=== PATIENT | female | born 1955 | race Hispanic/Latino ===

== ENCOUNTER → 2019-12-26 | Outpatient (CLI) | payer OTHER | END | disposition home or self-care (01) | LOC: OIH 10:45 | PROVIDERS: ATTEND Family Medicine | DX: M17.0 Bilateral primary osteoarthritis of knee (principal) | CPT/HCPCS: 73562 ==

== ENCOUNTER → 2020-02-08 | Outpatient (CLI) | payer OTHER | END | disposition home or self-care (01) | LOC: OIH 13:22 | PROVIDERS: ATTEND Family Medicine | DX: J34.89 Other specified disorders of nose and nasal sinuses (principal) | CPT/HCPCS: 70220 ==

== ENCOUNTER → 2020-10-23 | Outpatient (CLI) | payer OTHER, MEDICARE | END | disposition home or self-care (01) | LOC: RAH 10:47 | PROVIDERS: ATTEND Family Medicine | DX: I10 Essential (primary) hypertension (principal); R07.81 Pleurodynia; M47.815 Spondylosis without myelopathy or radiculopathy, thoracolumbar region | CPT/HCPCS: 71046; 71110 ==

== ENCOUNTER 2024-09-19 11:19 | Emergency (ER) | payer OTHER, MEDICAID ==
[~2024-09-19] VITALS: Ht 162.6 cm; Wt 79.4 kg
--- NOTE | 2024-09-19 11:25 | ERN ---
ED Note History of Present Illness Stated Complaint: DIZZINESS, WEAKNESS Time Seen by MD: 11:19 Dictation: PATIENT IS A 68-YEAR-OLD FEMALE COMING TO THE EMERGENCY ROOM VIA EMS WITH COMPLAINTS GENERALIZED BODY WEAKNESS AND MILD DIZZINESS ONSET WAS 2 HOURS PRIOR TO ARRIVAL. SHE STATES THE ONSET WAS FAIRLY SUDDEN HOWEVER SHE HAS HAD NO FEVER NO CHILLS NO NAUSEA VOMITING NO CHEST PAIN. SHE DENIES ANY HEADACHE. DENIES HISTORY OF VERTIGO LABYRINTHITIS AND CURRENTLY YOUR NIH IS 0. Allergies: Coded Allergies: No Known Allergies (Unverified Allergy, Unknown, 09/19/24) Past Medical History History: Not Applicable RN Note Reviewed/Agreed w/PFSH: Yes Review of System Dictation CONSTITUTIONAL: NEGATIVE EXCEPT FOR HPI GENERALIZED BODY WEAK HEAD/FACE: NEGATIVE EXCEPT FOR HPI EENT: NEGATIVE EXCEPT FOR HPI RESPIRATORY: NEGATIVE EXCEPT FOR HPI GASTROINTESTINAL/ABDOMINAL: NEGATIVE EXCEPT FOR HPI GENITOURINARY: NEGATIVE EXCEPT FOR HPI MUSCULOSKELETAL: NEGATIVE EXCEPT FOR HPI INTEGUMENTARY: NEGATIVE EXCEPT FOR HPI NEUROLOGICAL/PSYCH: NEGATIVE EXCEPT FOR HPI DIZZINESS HEMATOLOGIC/LYMPHATIC: NEGATIVE EXCEPT FOR HPI ALL SYSTEMS NEGATIVE, EXCEPT NOTED ABOVE. 13 POINT REVIEW OF SYSTEMS ASSESSED AND ALL NEGATIVE EXCEPT FOR ABOVE. Initial Vital Sign VS Vital Signs Date Time Temp Pulse Resp B/P (MAP) Pulse Ox O2 Delivery O2 Flow Rate FiO2 09/19/24 11:20 97.9 130 20 129/78 95 Nasal Cannula 2.0 09/19/24 12:08 21 Physical Exam Dictation VITAL SIGNS REVIEWED GENERAL APPEARANCE: ALERT, ORIENTED X 3, NO ACUTE DISTRESS, WELL DEVELOPED, NOURISHED. HEAD AND FACE: NON-TRAUMATIC. EYES: PERRL, PINK CONJUNCTIVAS, EYELID NO TRAUMA, ANTERIOR CHAMBER WITH ARCUS SENILIS. EARS: PINNAS INTACT AND NO SIGNS OF TRAUMA OR ERYTHEMA EAR CANALS CLEAR AND NO DISCHARGE TM NO ERYTHEMA NOSE: NO DISCHARGE, NO BLEEDING. OROPHARYNX: MOUTH NORMAL, TONGUE PINK, PHARYNX CLEAR,NO ERYTHEMA, TONSILS NO EXUDATES, NO ABSCESSES NOTED, MUCOUS MEMBRANE MOIST NECK: SUPPLE, NON-TENDER, NO THYROMEGALY, NO MASSES, NO JVD, NO BRUITS BREAST:DEFERRED CHEST:NO TENDERNESS, NO CREPITUS, NO PARADOXICAL MOVEMENT, NO RETRACTIONS LUNGS:CLEAR, WELL-VENTILATED, SYMMETRIC, NO RALES, NO WHEEZING, NO RHONCHI, NO STRIDOR, GOOD BREATH SOUNDS BILATERALLY HEART: REGULAR RATE, REGULAR RHYTHM, NO MURMUR, NO GALLOPS VASCULAR: NO PERIPHERAL EDEMA, ABDOMEN: SOFT, POSITIVE BOWEL SOUNDS, NONDISTENDED, NO GUARDING, NONTENDER, NO REBOUND, NO MASSES NO HEPATOMEGALY, NO SPLENOMEGALY, NO PEARSON'S SIGN, NO HERNIAS. RECTAL: DEFERRED GENITAL: DEFERRED NEUROLOGICAL: NORMAL SPEECH, MOTOR FUNCTION INTACT, SENSORY FUNCTION INTACT NIH IS 0 MUSCULOSKELETAL: NECK NONTENDER, FULL RANGE OF MOTION, BACK NONTENDER, FULL RANGE OF MOTION, EXTREMITIES: NONTENDER, FULL RANGE OF MOTION SKIN: COLOR PINK, DRY, NO TURGOR, NO RASH, NO LACERATIONS, NO ABRASIONS, NO CONTUSIONS. LYMPHATIC: DEFERRED Results (Laboratory/Radiology) Laboratory/Radiology Laboratory Tests Test 09/19/24 11:30 09/19/24 12:36 White Blood Count 6.4 K/uL (4.8-10.8) Red Blood Count 4.61 MIL/uL (4.00-5.50) Hemoglobin 12.3 g/dL (12.0-16.0) Hematocrit 36.8 % (36-48) Mean Corpuscular Volume 79.8 fL (79-99) Mean Corpuscular Hemoglobin 26.7 pg (27.0-33.0) L Mean Corpuscular Hemoglobin Concent 33.4 g/dL (32.0-36.0) Red Cell Distribution Width 14.6 % (11.0-15.5) Platelet Count 176 K/uL (130-400) Mean Platelet Volume 13.8 fL (7.5-10.5) H Immature Granulocyte % (Auto) 0.3 % (0-1) Neutrophils (%) (Auto) 57.0 % (40.0-77.0) Lymphocytes (%) (Auto) 31.1 % (21.0-51.0) Monocytes (%) (Auto) 8.6 % (3.0-13.0) Eosinophils (%) (Auto) 2.2 % (0.0-8.0) Basophils (%) (Auto) 0.8 % (0.0-5.0) Neutrophils # (Auto) 3.6 K/uL (1.8-7.7) Lymphocytes # (Auto) 2.0 K/uL (1.0-4.8) Monocytes # (Auto) 0.6 K/uL (0.1-1.0) Eosinophils # (Auto) 0.14 K/uL (0.00-0.70) Basophils # (Auto) 0.05 K/uL (0.00-0.20) Absolute Immature Granulocyte (auto 0.02 K/uL (0-1) Nucleated Red Blood Cells 0.0 % (0.0-0.19) Sodium Level 145 mmol/L (136-145) Potassium Level 3.2 mmol/L (3.5-5.1) L Chloride Level 107 mmol/L (101-111) Carbon Dioxide Level 25 mmol/L (21-32) Blood Urea Nitrogen 20 mg/dL (7-18) H Creatinine 0.7 mg/dL (0.5-1.0) Glomerular Filtration Rate Calc 93 mL/min (>90) Random Glucose 118 mg/dL (70-105) H Total Calcium 8.9 mg/dL (8.5-10.1) Troponin I High Sensitivity 16 ng/L (4-50) Lipase 31 U/L (16-77) Urine Color COLORLESS (YELLOW) Urine Appearance CLEAR (CLEAR) Urine pH 6.5 (5.0-8.0) Urine Specific [place] 1.010 (1.001-1.031) Urine Protein 10 mg/dL (NEGATIVE) H Urine Glucose (UA) NEGATIVE mg/dL (NEGATIVE) Urine Ketones NEGATIVE mg/dL (NEGATIVE) Urine Occult Blood NEGATIVE (NEGATIVE) Urine Nitrate NEGATIVE (NEGATIVE) Urine Bilirubin NEGATIVE mg/dL (NEGATIVE) Urine Urobilinogen 0.2 mg/dL (0.2-1.0) Urine Leukocyte Esterase NEGATIVE [place]omi/uL Urine RBC 0-1 /HPF (0-1) Urine WBC 0-1 /HPF (0-1) Urine Squamous Epithelial Cells Rare /HPF (0-2) Urine Bacteria None Seen /HPF (None Seen) Labs Reviewed?: Yes ED Course ED Course Orders Procedure Category Date Status Time Cbc With Differential LAB 09/19/24 Complete 11:23 Troponin I High LAB 09/19/24 Complete Sensitivity 11:23 Urinalysis Profile LAB 09/19/24 Complete 11:23 12 Lead Ekg Tracing- EKG 09/19/24 Complete Technical 11:23 0.9%Nacl 1000ml (Ns PHA 09/19/24 Complete 1000ml) 11:30 Lipase LAB 09/19/24 Complete 11:23 Basic Metabolic Panel LAB 09/19/24 Complete 11:23 Potassium Bicarb/Cit PHA 09/19/24 Verified Ac 25meq (K-Lyte Ta 14:00 Current Medications Medications (Trade) Dose Ordered Sig/Tod Route PRN Reason Start Time Stop Time Status Last Admin Dose Admin Sodium Chloride 1,000 ml @ 0 mls/hr ONCE ONCE IV 09/19/24 11:30 09/19/24 11:31 DC 09/19/24 12:12 Vital Signs Date Time Temp Pulse Resp B/P (MAP) Pulse Ox O2 Delivery O2 Flow Rate FiO2 09/19/24 12:08 85 16 125/76 95 Room Air* 0 21 09/19/24 11:20 97.9 130 20 129/78 95 Nasal Cannula 2.0 1330/WORKUP IS NEGATIVE EXCEPT POTASSIUM 3.2 AND GLUCOSE 118 WE WILL REPLACE POTASSIUM AND SEND PATIENT HOME TO FOLLOW UP WITH HER PRIMARY CARE DOCTOR. PATIENT HEMODYNAMICALLY STABLE ALL QUESTIONS AND Medical Decision Making MDM MDM: DIFFERENTIAL DIAGNOSIS: ACS/AMI/ELECTROLYTE IMBALANCE/DEHYDRATION/UTI/ANXIETY RATIONALE: TESTS CONSIDERED AND ORDERED SECONDARY TO SHARED DECISION MAKING INCLUDE: EKG/LABS/RADIOLOGY PREVIOUS OUTSIDE RECORDS REVIEWED: OLD ER VISITS. RISK OF COMPLICATION AND/OR MORBIDITY OR MORTALITY OF PATIENT MANAGEMENT: NONE MEDICATIONS-PER MEDICATION RECONCILIATION NEED FOR HOSPITALIZATION: PATIENT DOES NOT MEET CRITERIA FOR HOSPITALIZATION. NO NEED FOR EMERGENCY MAJOR/MINOR SURGERY: NO THERE ARE NO SOCIAL CONCERNS WITH THIS PATIENT. PRESCRIPTION DRUG MANAGEMENT K-DUR PRESCRIPTIONS WILL INCLUDE SYMPTOMATIC CARE PATIENT'S PRIOR EXTERNAL MEDICAL RECORDS FROM OTHER ER VISITS WERE REVIEWED BY ME INDICATED. PRIOR TESTING AND RESULTS FROM PREVIOUS VISITS WERE REVIEWED. PRIOR TESTS WERE TAKEN INTO ACCOUNT WITH MEDICAL DECISION MAKING AND RESOURCE UTILIZATION, INDEPENDENT HISTORIAN/HISTORIANS WERE USED TO OBTAIN COMPLETE MEDICAL HISTORY. I INDEPENDENTLY INTERPRETED THE TEST THAT WERE PERFORMED, RESULTS WERE REVIEWED BY ME AND CONSIDERED FINDINGS ON RADIOLOGY IF ORDERED. MEDICAL MANAGEMENT AND EXAMINATION INTERPRETATION DISCUSSIONS WERE HAD BY ME WITH OTHER QUALIFIED HEALTHCARE PROFESSIONALS INDICATED FOR THE PATIENT'S CARE. DX & DISP Disposition: Discharge Departure Impression: Primary Impression: Hypokalemia Additional Impressions: Hyperglycemia, Anxiety Condition: Stable Scripts Potassium Bicarbonate/Cit AC (Klor-Con-Ef 25 Meq Tab Eff) 25 Meq Tablet.eff 1 TAB PO DAILY for 5 Days, #5 TAB 0 Refills Prov: TENNILLE BORGES GARAGE LABORER 09/19/24 Additional Instructions: FOLLOW-UP WITH PRIMARY CARE PROVIDER IN 1 TO 2 DAYS. TAKE MEDICATIONS DIRECTED HERE IN THE EMERGENCY ROOM. OKAY TO CONTINUE HOME MEDICATIONS UNLESS OTHERWISE DISCUSSED DURING YOUR VISIT IN THE EMERGENCY ROOM TODAY. RETURN TO YOUR NEAREST EMERGENCY ROOM IF SYMPTOMS WORSEN OR IF THERE IS NO IMPROVEMENT. CALL 911 IF YOU NEED IMMEDIATE ASSISTANCE. TAKE TYLENOL OR MOTRIN [id number] NEEDED AND IF NO CONTRAINDICATIONS ARE PRESENT. INCREASE ORAL HYDRATION. A WOUND CULTURE OR URINE CULTURE WAS ORDERED HERE IN THE EMERGENCY ROOM DEPARTMENT PLEASE FOLLOW-UP WITH PRIMARY CARE PROVIDER AND ADVISE THEM TO GET REPEAT PORTS FROM OUR FACILITY. IF YOU HAD ANY MONTSE WRAP/SPLINTS THAT WERE APPLIED HERE, PLEASE DO NOT REMOVE THEM UNTIL YOU SEE YOUR PRIMARY CARE OR SPECIALTY. TAKE POTASSIUM DIRECTED STARTING TOMORROW. FOLLOW UP WITH YOUR PRIMARY CARE DOCTOR IN THE NEXT 1-2 DAYS. Referrals: YARA GUTIERREZ MD (PCP) Time of Disposition: 13:35 I have reviewed the case, and I agree with, Diagnosis and Plan TENNILLE BORGES NP Sep 19, 2024 11:25
[2024-09-19 11:37] LABS: IMMATURE GRANULOCYTE ABSOLUTE 0.02 K/uL (0-1); NUCLEATED RED BLOOD CELLS 0.0 % (0.0-0.19); PLATELET COUNT (AUTO) 176 K/uL (130-400); RED BLOOD CELL COUNT(AUTO) 4.61 MIL/uL (4.00-5.50); RED CELL DISTRIBUTION WIDTH 14.6 % (11.0-15.5); WHITE BLOOD COUNT (AUTO) 6.4 K/uL (4.8-10.8)
[2024-09-19 11:44] LABS: CREATININE 0.7 mg/dL (0.5-1.0); GLOMERULAR FILTR. RATE CALC 93.0 mL/min (>90); GLUCOSE,RANDOM 118.0 mg/dL (70-105); SODIUM SERUM 145.0 mmol/L (136-145); UREA NITROGEN, BLOOD 20.0 mg/dL (7-18)
--- NOTE | 2024-09-19 11:45 | EKG ---
[facility] Test Date: 2024-09-19 Test Time: 11:42:04 Pat Name: PORFIRIO STEINER Department: ED Room: Gender: F Press Hand: [id number] : 1955 Requested By: TENNILLE BORGES Order Number: [id number] Reading MD: Mai Larson Measurements Intervals [place] Rate: 90 P: 43 OK: 168 QRS: -5 QRSD: 89 T: 30 QT: 362 QTc: 444 Interpretive Statements Sinus rhythm Inferior infarct, old Consider anterior infarct No previous ECG available for comparison Electronically Signed On 09-19-2024 15:31:32 CDT by Mai Larson Please click the below link to view image of tracing.
[2024-09-19] MEDS: 0.9%NACL 1000ML 1,000 ML IV ONE (12:12)
[2024-09-19 12:47] LABS: APPEARANCE,URINE CLEAR (CLEAR); GLUCOSE, URINE (UA) NEGATIVE (NEGATIVE); LEUKOCYTE ESTERASE ,URINE NEGATIVE Leu/uL (NEGATIVE); NITRATE,URINE NEGATIVE (NEGATIVE); OCCULT BLOOD,URINE NEGATIVE (NEGATIVE)
[2024-09-19 13:07] LABS: ADD UA MICROSCOPIC YES
[2024-09-19 13:08] LABS: SQUAMOUS EPITHELIAL CELL,UR Rare /HPF (0-2)
[2024-09-19] MEDS ORDERED: POTA25TA41 PO (13:36)
[2024-09-19 14:01] VITALS: BP 122/75; PULSE 82; RESP 18; TEMP 97.9; O2SAT 96
== END 2024-09-19 14:03 | disposition home or self-care (01) ==
LOC: EDH 11:19
DX: E87.6 Hypokalemia (principal); R73.9 Hyperglycemia, unspecified; F41.9 Anxiety disorder, unspecified
CPT/HCPCS: 99284; 96360; 84484; 80048; 83690; 85025; 81001; 36415; 93005; J7030

== ENCOUNTER 2024-10-07 12:35 | Observation (INO) | payer OTHER, MEDICAID ==
[~2024-10-07] VITALS: Ht 154.9 cm; Wt 78.9 kg
[~2024-10-07 12:35] MED LIST: POTA25TA41 PO
[2024-10-07] MEDS ORDERED: PoTASSium chl 10% ELIXIR 20MEQ 20 MEQ/15 ML UDCUP PO PRN (13:30)
[2024-10-07] MEDS: 0.9%NACL 1000ML 1,000 ML IV SCH (13:41)
[2024-10-07 13:47] LABS: IMMATURE GRANULOCYTE ABSOLUTE 0.03 K/uL (0-1); NUCLEATED RED BLOOD CELLS 0.0 % (0.0-0.19); PLATELET COUNT (AUTO) 211 K/uL (130-400); RED BLOOD CELL COUNT(AUTO) 4.85 MIL/uL (4.00-5.50); RED CELL DISTRIBUTION WIDTH 14.2 % (11.0-15.5); WHITE BLOOD COUNT (AUTO) 11.0 K/uL (4.8-10.8)
[2024-10-07 14:02] LABS: PHOSPHORUS 3.9 mg/dL (2.5-4.9)
[2024-10-07] MEDS ORDERED: LACTULOSE 20 GM/30 ML UDCUP PO PRN (14:30)
[2024-10-07] MEDS ORDERED: ALBUTEROL 0.083% 2.5 MG/3 ML INH IH PRN (14:30)
[2024-10-07] MEDS ORDERED: LOPERAMIDE HCL 2 MG CAP PO PRN (14:30)
[2024-10-07] MEDS ORDERED: BENZOCAINE/MENTH/CETYLPYRD CL 1 EACH LOZENGE MM PRN (14:30)
[2024-10-07] MEDS ORDERED: ARTIFICAL TEARS SOL 15 ML OP PRN (14:30)
--- NOTE | 2024-10-07 15:28 | HP ---
[facility] HISTORY & PHYSICAL Date Patient Seen: Oct 07, 2024 Time of Visit: 15:15 Supervising Physician: [Dr Higginbotham Primary Care Physician: [Rosalinda (NESSA) Outpatient Specialists: [ ] Inpatient Consults: [ ] PROBLEM LIST: Acute hyponatremia Acute hypokalemia Headache Type 2 DM Essential Hypertension Hyperlipidemia GERD PLAN SUMMARY: Supplemental oxygen as needed Replace k via protocol NS @ 100 ml/hr HOLD hctz Hyponatremia workup Obtain UA C/S Repeat AM labs Dispo: HOME HPI: Mrs. Jessica Mondragon is a 69 year old female with a past medical history of diabetes, hypertension, hyperlipidemia, vitamin-D deficiency, hypothyroidism, GERD presented as a direct admission from PCP's office and [facility] with a chief complaint of headache. Patient was evaluated by her PCP and was found to have low-sodium as well as low potassium. Patient was previously evaluated by the ED about 3 weeks ago for similar symptoms. Patient had a CT of the head performed and results were negative. Daughter reports patient continued with similar sym ptoms nurse therefore she took the patient back to urgent care several days ago and a CT scan of the head was once again performed which was unremarkable. Patient denies fevers, chills, shortness for breath, chest pain, nausea, vomiting, abdominal pain. Patient was a direct admission from [facility] clinic therefore currently no labs are available for review. Of note patient was found to take hydrochlorothiazide at home therefore suspect is the cause for electrolyte abnormalities. We will discontinue hydrochlorothiazide at this time. We will replace electrolytes via protocol and repeat a.m. labs. Patient will be admitted under observation for electrolyte abnormalities. PAST MEDICAL HX: see above PAST SURGICAL HX: noncontributory SOCIAL HISTORY: No tobacco, ETOH, or illicit drug use Coded Allergies: No Known Allergies (Unverified Allergy, Unknown, 09/19/24) REVIEW OF SYSTEMS: 12 point ROS reviewed with patient. Pertinent positives mentioned above. Otherwise negative. PHYSICAL EXAM: GENERAL: alert, weak, awake oriented x 3 HEENT: EOMI, Sclera non icteric, moist mucosa NECK: Supple, no JVD, trachea midline LUNGS: Clear breath sounds bilaterally. No wheezes HEART: Regular rate and rhythm. Normal S1 and S2, without murmurs ABD: Abdomen soft, nontender. Bowel sounds present EXT: No clubbing cyanosis or edema NEURO: Alert and oriented to person, follows commands Vital Signs (last 8hr) Date Time Temp Pulse Resp B/P (MAP) Pulse Ox O2 Delivery O2 Flow Rate FiO2 10/07/24 12:38 98.8 67 20 146/77 100 Room Air 0 LABS: Hematology Labs: Test 10/07/24 13:33 Range/Units White Blood Count 11.0 H 4.8-10.8 K/uL Red Blood Count 4.85 4.00-5.50 MIL/uL Hemoglobin 13.1 12.0-16.0 g/dL Hematocrit 37.7 36-48 % Mean Corpuscular Volume 77.7 L 79-99 fL Mean Corpuscular Hemoglobin 27.0 27.0-33.0 pg Mean Corpuscular Hemoglobin Concent 34.7 32.0-36.0 g/dL Red Cell Distribution Width 14.2 11.0-15.5 % Platelet Count 211 130-400 K/uL Mean Platelet Volume 13.3 H 7.5-10.5 fL Immature Granulocyte % (Auto) 0.3 0-1 % Neutrophils (%) (Auto) 66.6 40.0-77.0 % Lymphocytes (%) (Auto) 22.7 21.0-51.0 % Monocytes (%) (Auto) 9.3 3.0-13.0 % Eosinophils (%) (Auto) 0.6 0.0-8.0 % Basophils (%) (Auto) 0.5 0.0-5.0 % Neutrophils # (Auto) 7.3 1.8-7.7 K/uL Lymphocytes # (Auto) 2.5 1.0-4.8 K/uL Monocytes # (Auto) 1.0 0.1-1.0 K/uL Eosinophils # (Auto) 0.07 0.00-0.70 K/uL Basophils # (Auto) 0.05 0.00-0.20 K/uL Absolute Immature Granulocyte (auto 0.03 0-1 K/uL Nucleated Red Blood Cells 0.0 0.0-0.19 % Chemistry Labs: Test 10/07/24 13:33 Range/Units Uric Acid 4.7 2.6-7.2 mg/dL Phosphorus Level 3.9 2.5-4.9 mg/dL Magnesium Level 1.80 1.80-2.40 mg/dL B-Type Natriuretic Peptide 14 0-100 pg/mL Thyroid Stimulating Hormone (TSH) 2.82 0.36-3.74 uIU/mL DIAGNOSTICS / RADIOLOGY RESULTS: [ ] PLAN NEURO: Minimize central acting medications as possible. Maintain fall precautions, adequate lighting during the day PULMONARY: Supplemental 02 as needed. Maintain aspiration precautions at all times CARDIOVASCULAR: Follow hemodynamics. Vital signs per facility protocol GI & NUTRITION: Continue with nutritional support. Continue stool softeners and laxatives as needed. KIDNEYS & ELECTROLYTES: Strict monitoring of intake, output and overall fluid balance. Avoid nephrotoxic medications to the extent possible. Medications to be dosed according to renal function. Monitor electrolytes and replace as needed ENDOCRINE: Maintain blood glucose between 100-180 at all times. Hypoglycemia protocol in place INFECTIOUS DISEASE: Trend temperature, WBC and procalcitonin level Follow cultures, deescalate antibiotics as soon as possible. Panculture if new onset fever ONCOLOGY/HEMATOLOGY/COAGULATION: Monitor for s/s of bleeding Monitor hemoglobin, coagulation studies as needed SKIN: Pressure ulcer prevention per facility protocol Specialty mattress ORTHO/REHAB: Continue PT/OT Prophylaxis: Continue GI and DVT prophylaxis Code Status: Full Resuscitation Disposition: Home ATTESTATION BY PHYSICIAN I have evaluated the patient chart, medical records, and spoke with appropriate staff. I reviewed the documentation, medical decision making, and treatment plan as noted by the mid-level provider above. I agree with the findings and plan of care. Nik Higginbotham MD,SHELBY N NICOLÁS Oct 07, 2024 15:28
--- NOTE | 2024-10-07 16:09 | NUR ---
GAVE REPORT TO NURSE ALISSON.
[2024-10-07 16:50] VITALS: PULSE 78; RESP 18; O2SAT 100
[2024-10-07 17:00] VITALS: BP 131/68; PULSE 61; RESP 18; TEMP 98.2
[2024-10-07 17:39] VITALS: O2SAT 95
[2024-10-07] MEDS ORDERED: FISH12002 PO (18:25)
[2024-10-07] MEDS ORDERED: LEVO88CA5 PO (18:25)
[2024-10-07] MEDS ORDERED: OMEP40CA21 PO (18:25)
[2024-10-07] MEDS ORDERED: PRAV40TA62 PO (18:25)
[2024-10-07] MEDS ORDERED: HYDR25TA PO (18:25)
[2024-10-07] MEDS ORDERED: LISI40TA15 PO (18:25)
[2024-10-07] MEDS ORDERED: [UNRECOGNIZED DRUG - CODE] PO (18:25)
[2024-10-07 19:04] VITALS: PULSE 61; RESP 18; O2SAT 95
[2024-10-07 20:00] VITALS: BP 126/69; PULSE 62; RESP 18; TEMP 98
[2024-10-08] VITALS: BP 125/58; PULSE 53; RESP 18; TEMP 97.9
[2024-10-08 04:00] VITALS: BP 94/53; PULSE 68; RESP 16; TEMP 97.6
[2024-10-08 04:07] LABS: NUCLEATED RED BLOOD CELLS 0.0 % (0.0-0.19); PLATELET COUNT (AUTO) 180.0 K/uL (130-400); RED BLOOD CELL COUNT(AUTO) 4.41 MIL/uL (4.00-5.50); RED CELL DISTRIBUTION WIDTH 14.2 % (11.0-15.5); WHITE BLOOD COUNT (AUTO) 9.8 K/uL (4.8-10.8)
[2024-10-08 04:31] LABS: ASPARTATE AMINOTRANSFERASE 13.0 U/L (10-37); CREATININE 0.7 mg/dL (0.5-1.0); GLOMERULAR FILTR. RATE CALC 92.0 mL/min (>90); GLUCOSE,RANDOM 98.0 mg/dL (70-105); PHOSPHORUS 4.1 mg/dL (2.5-4.9); SODIUM SERUM 132.0 mmol/L (136-145); TOTAL PROTEIN, SERUM 6.0 g/dL (6.0-8.3); UREA NITROGEN, BLOOD 14.0 mg/dL (7-18)
[2024-10-08] MEDS: PoTASSium chloRIDE 20MEQ ER 20 MEQ ERTAB PO PRN (04:41)
[2024-10-08 04:55] LABS: APPEARANCE,URINE CLEAR (CLEAR); GLUCOSE, URINE (UA) NEGATIVE (NEGATIVE); LEUKOCYTE ESTERASE ,URINE 25 Leu/uL (NEGATIVE); NITRATE,URINE NEGATIVE (NEGATIVE); OCCULT BLOOD,URINE NEGATIVE (NEGATIVE)
[2024-10-08 05:01] LABS: ADD UA MICROSCOPIC YES
[2024-10-08 05:03] LABS: SQUAMOUS EPITHELIAL CELL,UR RARE /HPF (0-2)
--- NOTE | 2024-10-08 05:52 | HMCIMG ---
EXAM: CR Chest, 1 view CLINICAL HISTORY: Cough. COMPARISON: Chest radiograph dated 10/23/2020. FINDINGS: The lungs show no infiltrates or other acute findings. No pleural effusion or pneumothorax. The cardiomediastinal silhouette is within normal limits. No acute osseous abnormality. IMPRESSION: No acute cardiopulmonary process is evident. No interval changes. /[place]
[2024-10-08 06:19] VITALS: PULSE 65; RESP 18; O2SAT 95
[2024-10-08 08:00] VITALS: BP 127/66; PULSE 66; RESP 17; TEMP 97.8; O2SAT 100
--- NOTE | 2024-10-08 08:23 | NUR ---
PHARMACY CONTACTED Ordered medication, Potassium Bicarbonate not available in either [facility] on unit. Pharmacy notified and will send out with next batch.
[2024-10-08] MEDS: MAGNESIUM 2GM PREMIX 50ML 50 ML IV PRN (08:29)
--- NOTE | 2024-10-08 09:00 | NUR ---
Marlon white Review of home medications. Home medication, Hydrochlorothiazide to be discontinued. Electrolyte replacement will continue and potassium level to be redrawn at 11:00am. Addendum: 10/08/24 at 0902 by NO STRATTON RN RN Amended: Links added.
--- NOTE | 2024-10-08 11:45 | DS ---
[facility] DISCHARGE SUMMARY Date Patient Seen: Oct 08, 2024 Time of Visit: 11:41 Supervising Physician: Nghia Higginbotham Primary Care Physician: [Rosalinda (NESSA) Outpatient Specialists: [ ] Inpatient Consults: [ ] PROBLEM LIST: Acute hyponatremia secondary to hydrochlorothiazide resolved Acute hypokalemia secondary to hydrochlorothiazide resolved Headache resolved Type 2 DM Essential Hypertension Hyperlipidemia GERD HOSPITAL COURSE: HPI (per admitting provider) Mrs. Jessica Mondragon is a 69 year old female with a past medical history of diabetes, hypertension, hyperlipidemia, vitamin-D deficiency, hypothyroidism, GERD presented as a direct admission from PCP's office and [facility] with a chief complaint of headache. Patient was evaluated by her PCP and was found to have low-sodium as well as low potassium. Patient was previously evaluated by the ED about 3 weeks ago for similar symptoms. Patient had a CT of the head performed and results were negative. Daughter reports patient continued with similar symptoms nurse therefore she took the patient back to urgent care several days ago and a CT scan of the head was once again performed which was unremarkable. Patient denies fevers, chills, shortness for breath, chest pain, nausea, vomiting, abdominal pain. Patient was a direct admission from [facility] clinic therefore currently no labs are available for review. Of note patient was found to take hydrochlorothiazide at home therefore suspect is the cause for electrolyte abnormalities. We will discontinue hydrochlorothiazide at this time. We will replace electrolytes via protocol and repeat a.m. labs. Patient will be admitted under observation for electrolyte abnormalities. Today patient is seen sitting up in bed accompanied by her daughter. Patient reports her headache has resolved. Patient reports feeling much improved. No acute changes reported overnight. Patient was given IV fluids and electrolytes were replaced overnight. Today's labs show all electrolytes are within normal limits. Patient has been advised to discontinue hydrochlorothiazide. Patient has been advised to follow up with PCP in the next 1-2 days. Patient verbalized understanding. Medication reconciliation has been completed. Education regarding current diagnosis has been provided to the patient. All questions have been answered. Patient to be discharged home. The patient was treated for the following problems: ACTIVE PROBLEM LIST FOR THE HOSPITALIZATION: Acute hyponatremia secondary to hydrochlorothiazide resolved Acute hypokalemia secondary to hydrochlorothiazide resolved Headache resolved Type 2 DM Essential Hypertension Hyperlipidemia GERD CHRONIC PROBLEMS: continue previous management per PCP unless otherwise indicated SANITATION ENGINEER FINDINGS/RECOMMENDATIONS: [ ] PROCEDURES: as mentioned above DISCHARGE MEDICATIONS: See DC med rec Pt hemodynamically stable and afebrile at time of discharge. PCP notified of patients admission, hospital course and discharge. Continued Medications: Aspirin ([place] Aspirin) 81 Mg Tab.chew 1 TAB PO DAILY for 30 Days, #60 TAB 0 Refills Fish Oil/Borage/Flax/Om3,6,9#1 ([place] 3-6-9 1,200 mg Softgel) 1,200 Mg Capsule 1 CAP PO BID for 30 Days, #60 CAP 0 Refills Levothyroxine Sodium (Levothyroxine) 88 Mcg Capsule 1 CAP PO DAILY for 30 Days, #30 CAP 0 Refills Lisinopril (Lisinopril) 40 Mg Tablet 1 TAB PO DAILY for 30 Days, #30 TAB 0 Refills Omeprazole (Omeprazole) 40 Mg Capsule.dr 1 CAP PO DAILY for 30 Days, #30 CAP 0 Refills Potassium Bicarbonate/Cit AC (Klor-Con-Ef 25 Meq Tab Eff) 25 Meq Tablet.eff 1 TAB PO DAILY for 5 Days, #5 TAB 0 Refills Pravastatin Sodium (Pravastatin Sodium) 40 Mg Tablet 1 TAB PO DAILY for 30 Days, #30 TAB 0 Refills PHYSICAL EXAM: GENERAL: alert, weak, awake oriented x 3 HEENT: EOMI, Sclera non icteric, moist mucosa NECK: Supple, no JVD, trachea midline LUNGS: Clear breath sounds bilaterally. No wheezes HEART: Regular rate and rhythm. Normal S1 and S2, without murmurs ABD: Abdomen soft, nontender. Bowel sounds present EXT: No clubbing cyanosis or edema NEURO: Alert and oriented to person, follows commands FOLLOW-UP: Follow-up with PCP in 2-3 days RECOMMENDATIONS: See Discharge Instructions This case was seen and discussed with my supervising physician. More than 30 minutes spent on discharge process, including evaluation of the patient, discussion with nursing staff, medication reconciliation and follow-up appointments ATTESTATION BY PHYSICIAN I have evaluated the patient chart, medical records, and spoke with appropriate staff. I reviewed the documentation, medical decision making, and treatment plan as noted by the mid-level provider above. I agree with the findings and plan of care. Nik Higginbotham MD, ECTOR N NICOLÁS Oct 08, 2024 11:45
[2024-10-08 12:00] VITALS: BP 121/67; PULSE 61; RESP 18; TEMP 98.1
--- NOTE | 2024-10-08 13:26 | NUR ---
DISCHARGE NOTE Discharge instructions reviewed with patient and 2 daughters present at bedside. Patient is to follow up with [facility] clinic in 1-3 days. IV and ID bands removed. Personal belongings packed and taken with family. Patient taken down to personal vehicle via wheelchair
== END 2024-10-08 13:44 | disposition home or self-care (01) ==
LOC: EDH 12:35 → EDHIP 12:36 → 4DH 17:07
PROVIDERS: ADMIT Internal Medicine Critical Care Medicine; ATTEND Internal Medicine Critical Care Medicine
DX: E87.1 Hypo-osmolality and hyponatremia (principal); Z20.822 Contact with and (suspected) exposure to COVID-19; E87.6 Hypokalemia; E11.9 Type 2 diabetes mellitus without complications; I10 Essential (primary) hypertension; E78.5 Hyperlipidemia, unspecified; K21.9 Gastro-esophageal reflux disease without esophagitis; E03.9 Hypothyroidism, unspecified; Z79.899 Other long term (current) drug therapy; Z86.2 Personal history of diseases of the blood and blood-forming organs and certain disorders involving the immune mechanism
CPT/HCPCS: 96361 ×2; 83036; 84443; 83735 ×2; 84100 ×2; 84550; 83880; 85025; 82948 ×4; 36415 ×2; 71045; 96365; 96366; 96367; 84132; 80053; 84300; 85027; 82088; 82533; 87426; 81001; 97161; 97116; 97530 ×2; 84145; G0378 ×23; G0379; J3475; J3480

== ENCOUNTER 2024-12-18 20:57 | Emergency (ER) | payer OTHER, MEDICAID ==
[~2024-12-18] VITALS: Ht 160 cm; Wt 78.5 kg
[~2024-12-18 20:57] MED LIST changes: +FISH12002 PO; +LEVO88CA5 PO; +LISI40TA15 PO; +OMEP40CA21 PO; +PRAV40TA62 PO; +[UNRECOGNIZED DRUG - CODE] PO
--- NOTE | 2024-12-18 20:59 | NUR ---
UA CUP PROVIDED
--- NOTE | 2024-12-18 21:05 | NUR ---
UA COLLECTED AND SENT
[2024-12-18 21:37] LABS: APPEARANCE,URINE CLEAR (CLEAR); GLUCOSE, URINE (UA) NEGATIVE (NEGATIVE); LEUKOCYTE ESTERASE ,URINE NEGATIVE Leu/uL (NEGATIVE); NITRATE,URINE NEGATIVE (NEGATIVE); OCCULT BLOOD,URINE NEGATIVE (NEGATIVE)
[2024-12-18 21:39] LABS: ADD UA MICROSCOPIC NO
[2024-12-18 21:59] LABS: IMMATURE GRANULOCYTE ABSOLUTE 0.02 K/uL (0-1); NUCLEATED RED BLOOD CELLS 0.0 % (0.0-0.19); PLATELET COUNT (AUTO) 193 K/uL (130-400); RED BLOOD CELL COUNT(AUTO) 4.32 MIL/uL (4.00-5.50); RED CELL DISTRIBUTION WIDTH 15.0 % (11.0-15.5); WHITE BLOOD COUNT (AUTO) 7.6 K/uL (4.8-10.8)
[2024-12-18 22:12] LABS: CREATININE 1.0 mg/dL (0.5-1.0); GLOMERULAR FILTR. RATE CALC 60.0 mL/min (>90); GLUCOSE,RANDOM 105.0 mg/dL (70-105); SODIUM SERUM 141.0 mmol/L (136-145); UREA NITROGEN, BLOOD 24.0 mg/dL (7-18)
[2024-12-18 23:03] VITALS: BP 172/72; PULSE 66; RESP 16; TEMP 98.3; O2SAT 98
--- NOTE | 2024-12-18 23:19 | HMCIMG ---
EXAM: CT Head Without IV contrast. CLINICAL HISTORY: left facial numbness/tingling TECHNIQUE: Axial computed tomography images of the head/brain without intravenous contrast. COMPARISON: None provided. FINDINGS: BRAIN: No evidence of acute hemorrhage. No mass lesion. No CT evidence for acute territorial infarct. No midline shift or extra-axial collections. VENTRICLES: No hydrocephalus. ORBITS: The orbits are unremarkable. SINUSES AND MASTOIDS: The paranasal sinuses and mastoid air cells are clear. BONES: No fracture. SOFT TISSUES: Unremarkable. IMPRESSION: No acute intracranial abnormality. /[place]
--- NOTE | 2024-12-18 23:24 | ERN ---
General Chief Complaint: Headache Stated Complaint: HEADACHE Time Seen by MD: 21:11 Time Seen by Midlevel: 21:11 Source: patient History of Present Illness Initial Comments 69-year-old female presenting to the emergency department with a left-sided headache that started3 hours prior to arrival. Patient feels a discomfort the left side her face he is unsure if she should call it numbness or if painful. Denies any other symptoms. She specifically denies any nausea, vision changes, focal weakness, or any other symptoms. Allergies: Coded Allergies: No Known Allergies (Unverified Allergy, Unknown, 09/19/24) Home Meds Active Scripts Potassium Bicarbonate/Cit AC (Klor-Con-Ef 25 Meq Tab Eff) 25 Meq Tablet.eff, 1 TAB PO DAILY for 5 Days, #5 TAB 0 Refills Prov:TENNILLE BORGES 09/19/24 Reported Medications Levothyroxine Sodium (Levothyroxine) 88 Mcg Capsule, 1 CAP PO DAILY for 30 Days, #30 CAP 0 Refills 10/07/24 Lisinopril (Lisinopril) 40 Mg Tablet, 1 TAB PO DAILY for 30 Days, #30 TAB 0 Refills 10/07/24 Aspirin (Republic Aspirin) 81 Mg Tab.chew, 1 TAB PO DAILY for 30 Days, #60 TAB 0 Refills 10/07/24 Omeprazole (Omeprazole) 40 Mg Capsule.dr, 1 CAP PO DAILY for 30 Days, #30 CAP 0 Refills 10/07/24 Pravastatin Sodium (Pravastatin Sodium) 40 Mg Tablet, 1 TAB PO DAILY for 30 Days, #30 TAB 0 Refills 10/07/24 Fish Oil/Borage/Flax/Om3,6,9#1 ([place] 3-6-9 1,200 mg Softgel) 1,200 Mg Capsule, 1 CAP PO BID for 30 Days, #60 CAP 0 Refills 10/07/24 Past Medical History Past Medical History: Arthritis, High Cholesterol, Hypertension, Hypothyroid Past Surgical History: Appendectomy, Other Surgical History Other: BILATERAL KNEES Female( History) History: Not Applicable ROS Dictation CONSTITUTIONAL: Negative except for HPI HEAD/FACE: Negative except for HPI EENT: Negative except for HPI RESPIRATORY: Negative except for HPI GASTROINTESTINAL/ABDOMINAL: Negative except for HPI GENITOURINARY: Negative except for HPI MUSCULOSKELETAL: Negative except for HPI INTEGUMENTARY: Negative except for HPI NEUROLOGICAL/PSYCH: Negative except for HPI HEMATOLOGIC/LYMPHATIC: Negative except for HPI All Systems Negative, Except as noted above. 13 point review of systems assessed and all negative except for above. Physical Exam Physical Exam Dictation Vital Signs reviewed General Appearance: Alert, oriented x 3, no acute distress, well developed, nourished. Head and Face: non-traumatic. Eyes: PERRL, pink conjunctivas, eyelid no trauma, anterior chamber with arcus senilis. Ears: Pinnas intact and no signs of trauma or erythema ear canals clear and no discharge TM no erythema Nose: No discharge, no bleeding. Oropharynx: Mouth normal, tongue pink, pharynx clear,no erythema, tonsils no exudates, no abscesses noted, mucous membrane moist Neck: Supple, non-tender, no thyromegaly, no masses, no JVD, no bruits Breast:Deferred Chest:No tenderness, no crepitus, no paradoxical movement, no retractions Lungs:Clear, well-ventilated, symmetric, no rales, no wheezing, no rhonchi, no stridor, good breath sounds bilaterally Heart: Regular rate, regular rhythm, no murmur, no gallops Vascular: no peripheral edema, Abdomen: Soft, positive bowel sounds, nondistended, no guarding, nontender, no rebound, no masses no hepatomegaly, no splenomegaly, no Taylor's sign, no hernias. Rectal: Deferred Genital: Deferred Neurological: Normal speech, motor function intact, sensory function intact Musculoskeletal: Neck nontender, full range of motion, back nontender, full range of motion, Extremities: nontender, full range of motion Skin: Color pink, dry, no turgor, no rash, no lacerations, no abrasions, no contusions. Lymphatic: Deferred NIH STROKE SCALE: NIH STROKE SCALE Response (Comments) Value Level of Consciousness Alert 0 Ask patient month and their age Answers both correct 0 Command to open eyes, make fist and let go Obeys both correct 0 Best gaze (horizontal eye movement) Normal 0 Visual Field Testing No Visual Field Loss 0 Facial Paresis Normal / Symmetrical 0 Motor Function - Left Arm Normal 0 Motor Function - Right Arm Normal 0 Motor Function - Left Leg Normal 0 Motor Function - Right Leg Normal 0 Limb Ataxia No Ataxia 0 Sensory-pin prick to arms, legs, trunk and face Mild to Moderate Decrease 1 Best Language (describe picture, name items and read) No Aphasia 0 Dysarthria (read several words) Normal Articulation 0 Extinction and Inattention Normal 0 Total Results Laboratory and Microbiology Lab and Micro Result Laboratory Tests Test 12/18/24 21:05 12/18/24 21:46 Urine Color COLORLESS (YELLOW) Urine Appearance CLEAR (CLEAR) Urine pH 5.5 (5.0-8.0) Urine Specific [place] 1.010 (1.001-1.031) Urine Protein NEGATIVE mg/dL (NEGATIVE) Urine Glucose (UA) NEGATIVE mg/dL (NEGATIVE) Urine Ketones NEGATIVE mg/dL (NEGATIVE) Urine Occult Blood NEGATIVE (NEGATIVE) Urine Nitrate NEGATIVE (NEGATIVE) Urine Bilirubin NEGATIVE mg/dL (NEGATIVE) Urine Urobilinogen 0.2 mg/dL (0.2-1.0) Urine Leukocyte Esterase NEGATIVE Naomi/uL White Blood Count 7.6 K/uL (4.8-10.8) Red Blood Count 4.32 MIL/uL (4.00-5.50) Hemoglobin 11.3 g/dL (12.0-16.0) L Hematocrit 35.2 % (36-48) L Mean Corpuscular Volume 81.5 fL (79-99) Mean Corpuscular Hemoglobin 26.2 pg (27.0-33.0) L Mean Corpuscular Hemoglobin Concent 32.1 g/dL (32.0-36.0) Red Cell Distribution Width 15.0 % (11.0-15.5) Platelet Count 193 K/uL (130-400) Mean Platelet Volume 13.1 fL (7.5-10.5) H Immature Granulocyte % (Auto) 0.3 % (0-1) Neutrophils (%) (Auto) 52.4 % (40.0-77.0) Lymphocytes (%) (Auto) 36.2 % (21.0-51.0) Monocytes (%) (Auto) 8.2 % (3.0-13.0) Eosinophils (%) (Auto) 2.1 % (0.0-8.0) Basophils (%) (Auto) 0.8 % (0.0-5.0) Neutrophils # (Auto) 4.0 K/uL (1.8-7.7) Lymphocytes # (Auto) 2.7 K/uL (1.0-4.8) Monocytes # (Auto) 0.6 K/uL (0.1-1.0) Eosinophils # (Auto) 0.16 K/uL (0.00-0.70) Basophils # (Auto) 0.06 K/uL (0.00-0.20) Absolute Immature Granulocyte (auto 0.02 K/uL (0-1) Nucleated Red Blood Cells 0.0 % (0.0-0.19) Sodium Level 141 mmol/L (136-145) Potassium Level 4.0 mmol/L (3.5-5.1) Chloride Level 105 mmol/L (101-111) Carbon Dioxide Level 24 mmol/L (21-32) Blood Urea Nitrogen 24 mg/dL (7-18) H Creatinine 1.0 mg/dL (0.5-1.0) Glomerular Filtration Rate Calc 60 mL/min (>90) Random Glucose 105 mg/dL (70-105) Total Calcium 9.1 mg/dL (8.5-10.1) Magnesium Level 1.80 mg/dL (1.80-2.40) Troponin I High Sensitivity 5 ng/L (4-50) Labs Reviewed?: Yes MDM MDM: Differential diagnosis: Trigeminal neuralgia, electrolyte abnormality, intracranial bleed There are no social concerns with this patient. Prescription drug management Prescriptions will include: None Medical management and examination interpretation discussions were had by me rizo h other qualified healthcare professionals as indicated for the patient's care. ED Course Orders Procedure Category Date Status Time Urinalysis Profile LAB 12/18/24 Complete 21:05 Cbc With Differential LAB 12/18/24 Complete 21:15 Basic Metabolic Panel LAB 12/18/24 Complete 21:15 Magnesium LAB 12/18/24 Complete 21:15 Troponin I High LAB 12/18/24 Complete Sensitivity 21:15 Ct Head/Brain W/O CT 12/18/24 Resulted Contrast 22:57 Vital Signs Date Time Temp Pulse Resp B/P (MAP) Pulse Ox O2 Delivery O2 Flow Rate FiO2 12/18/24 23:03 98.2 66 16 172/72 98 Room Air* 0 21 12/18/24 20:59 97.9 63 16 169/78 100 Room Air DX & DISP Disposition: Discharge Departure Impression: Primary Impression: Headache, unspecified Condition: Stable Additional Instructions: Your blood work today is unremarkable. Your electrolytes are normal. Your kidney function is normal. There were no signs of infection. Your CT scan of the head is normal and does not show any evidence of a stroke. Follow up your primary care doctor. You may need follow up with Neurology outpatient for further evaluation. Referrals: DASHAWN BAILEY MD (PCP) NANCY JOHNSON MD Time of Disposition: 23:29 I have reviewed the case, and I agree with, Diagnosis and Plan I performed the substantive portion of the visit. I have reviewed and personally made and approve the management plan that is documented in the note by myself or the SATHYA. I acknowledge for responsibility for the patient's management plan. CEICLIA FULLER [facility] Dec 18, 2024 23:24
== END 2024-12-18 23:33 | disposition home or self-care (01) ==
LOC: EDH 20:57
DX: R51.9 Headache, unspecified (principal); E78.00 Pure hypercholesterolemia, unspecified; M19.90 Unspecified osteoarthritis, unspecified site; I10 Essential (primary) hypertension; E03.9 Hypothyroidism, unspecified; Z79.82 Long term (current) use of aspirin; Z79.899 Other long term (current) drug therapy; Z90.49 Acquired absence of other specified parts of digestive tract; Z79.890 Hormone replacement therapy
CPT/HCPCS: 36415; 70450; 80048; 81003; 83735; 84484; 85025; 99284